=== PATIENT | female | born 1980 | race African-American/Black ===

== ENCOUNTER 2021-05-16 17:18 | Emergency (ER) | payer OTHER ==
[2021-05-16 18:21] VITALS: BP 113/74; PULSE 108; RESP 20; TEMP 100.9
[2021-05-16] MEDS ORDERED: guaiFENesin-DM 600/30MG 1 EACH TAB.ER.12H PO STA (20:04)
[2021-05-16] MEDS ORDERED: ACETAMINOPHEN TAB 500 MG TAB PO STA (20:04)
--- NOTE | 2021-05-16 21:24 | XR ---
EXAMINATION TYPE: XR chest 1V DATE OF EXAM: 05/16/2021 CLINICAL HISTORY: Cough. TECHNIQUE: Portable frontal view of the chest. COMPARISON: None FINDINGS: The cardiomediastinal silhouette is within normal limits for size. Pulmonary vasculature i s normal. There is no focal air space opacity. No pleural effusion. No pneumothorax seen. No acute d isplaced osseous fracture. IMPRESSION: No acute cardiopulmonary process.
--- NOTE | 2021-05-16 21:27 | ED ---
URI HPI - General Chief Complaint: Upper Respiratory Infection Stated Complaint: cough/not eating Time Seen by Provider: 05/16/21 19:35 Source: patient Mode of arrival: ambulatory Limitations: no limitations - History of Present Illness Initial Comments: 40 -year-old female patient presents to the emergency department today for evaluation of cough and congestion. States that she has been feeling unwell for the last 2-3 days. States her appetite is decreased. She denies any sore throat. States she does have body aches and chills. Denies taking any medication for her symptoms. Denies any significant past medical history. States she has been exposed to COVID-19, a coworker tested positive this week. She denies any chance of . - Related Data Previous Rx's Medication Instructions Recorded guaiFENesin-DM 600/30MG [Mucinex 2 each PO Q12HR PRN #20 tab 05/16/21 Dm] predniSONE 50 mg PO DAILY #5 tablet 05/16/21 Allergies Allergy/AdvReac Type Severity Reaction Status Date / Time No Known Allergies Allergy Verified 05/16/21 18:19 Review of Systems ROS Statement: Those systems with pertinent positive or pertinent negative responses have been documented in the HPI. ROS Other: All systems not noted in ROS Statement are negative. Past Medical History Past Medical History: Asthma History of Any Multi-Drug Resistant Organisms: None Reported Past Surgical History: Section Past Psychological History: No Psychological Hx Reported Smoking Status: Never smoker Past Alcohol Use History: Occasional Past Drug Use History: None Reported General Exam Limitations: no limitations General appearance: alert, in no apparent distress, other (Is a well-developed, well-nourished adult female patient in no acute distress. Vital signs upon presentation temperature 100.9F, pulse 108, respirations 20 blood pressure 113/74, pulse ox 100% on room air.) Eye exam: Present: normal appearance, PERRL, EOMI. Absent: scleral icterus, conjunctival injection, periorbital swelling ENT exam: Present: normal exam, normal oropharynx, mucous membranes moist, TM's normal bilaterally Respiratory exam: Present: normal lung sounds bilaterally. Absent: respiratory distress, wheezes, rales, rhonchi, stridor Cardiovascular Exam: Present: regular rate, normal rhythm, normal heart sounds. Absent: systolic murmur, diastolic murmur, rubs, gallop, clicks GI/Abdominal exam: Present: soft, normal bowel sounds. Absent: distended, tenderness, guarding, rebound, rigid Neurological exam: Present: alert, oriented X3, CN II-XII intact Psychiatric exam: Present: normal affect, normal mood Skin exam: Present: warm, dry, intact, normal color. Absent: rash Course Vital Signs 05/16/21 18:19 Temperature 100.9 F H Pulse Rate 108 H Respiratory 20 Rate Blood Pressure 113/74 O2 Sat by Pulse 100 Oximetry Medical Decision Making - Medical Decision Making 40-year-old female patient presents to the emergency department today for evaluation of fever, cough, congestion. Physical examination is unremarkable. Lungs are clear to auscultation with good air movement. Vital signs did reveal elevated temperature. Normal oxygen saturation. Chest x-ray is negative. She tested negative for COVID-19. Discussed results with her. She was discharged home with prescription for Mucinex and prednisone. She is instructed to follow- up through primary care physician for recheck in 1-2 days. Return parameters were discussed in detail. She verbalizes understanding and agrees with this plan. My attending is Dr. Santos. - Lab Data Lab Results 05/16/21 05/16/21 Range/Units 18:21 20:28 Coronavirus (PCR) Not Detected Not Detected (Not Detectd) - Radiology Data Radiology results: report reviewed, image reviewed Review x-ray of the chest is obtained. Report was reviewed in its entirety. Impression by Dr. Skinner shows no acute cardiopulmonary process. Disposition Clinical Impression: Viral upper respiratory illness Disposition: HOME SELF-CARE Condition: Good Instructions (If sedation given, give patient instructions): Upper Respiratory Infection (ED) Additional Instructions: Medications as directed. Follow-up with your primary care physician for recheck in 1-2 days. Return for any new, worsening, or concerning symptoms. Prescriptions: guaiFENesin-DM 600/30MG [Mucinex Dm] 2 each PO Q12HR PRN #20 tab PRN Reason: Cough predniSONE 50 mg PO DAILY #5 tablet Is patient prescribed a controlled substance at d/c from ED?: No Referrals: None,Stated [Primary Care Provider] - 1-2 days Time of Disposition: 21:26
== END 2021-05-16 21:56 | disposition home or self-care (01) ==
LOC: EC 17:18
DX: J06.9 Acute upper respiratory infection, unspecified (principal); J45.909 Unspecified asthma, uncomplicated; Z20.822 Contact with and (suspected) exposure to COVID-19
CPT/HCPCS: 71045; 87635; 99283

== ENCOUNTER 2021-06-21 05:53 | Emergency (ER) | payer OTHER ==
[2021-06-21 05:59] VITALS: BP 136/86; PULSE 91; TEMP 98.8
[2021-06-21 06:08] VITALS: RESP 20
--- NOTE | 2021-06-21 06:51 | ED ---
URI HPI - General Chief Complaint: Upper Respiratory Infection Stated Complaint: Cough Time Seen by Provider: 06/21/21 06:07 Source: patient, RN notes reviewed Mode of arrival: ambulatory Limitations: no limitations - History of Present Illness Initial Comments: This a 32-year-old female presents emergency Department with chief complaint of possible covid 19. Patient states that her significant other tested positive. Patient that she's had a mild runny nose no significant fever mild cough and congestion. Patient denies any chest pain no GI symptoms no other complaints. - Related Data Previous Rx's Medication Instructions Recorded guaiFENesin-DM 600/30MG [Mucinex 2 each PO Q12HR PRN #20 tab 05/16/21 Dm] predniSONE 50 mg PO DAILY #5 tablet 05/16/21 Allergies Allergy/AdvReac Type Severity Reaction Status Date / Time No Known Allergies Allergy Verified 06/21/21 05:59 Review of Systems ROS Statement: Those systems with pertinent positive or pertinent negative responses have been documented in the HPI. ROS Other: All systems not noted in ROS Statement are negative. Past Medical History Past Medical History: Asthma History of Any Multi-Drug Resistant Organisms: None Reported Past Surgical History: Section Past Psychological History: No Psychological Hx Reported Smoking Status: Never smoker Past Alcohol Use History: Occasional Past Drug Use History: None Reported General Exam Limitations: no limitations General appearance: alert, in no apparent distress Head exam: Present: atraumatic, normocephalic, normal inspection Eye exam: Present: normal appearance, PERRL, EOMI. Absent: scleral icterus, conjunctival injection, periorbital swelling ENT exam: Present: normal exam, mucous membranes moist Neck exam: Present: normal inspection, full ROM. Absent: tenderness, meningismus, lymphadenopathy Respiratory exam: Present: normal lung sounds bilaterally. Absent: respiratory distress, wheezes, rales, rhonchi, stridor Cardiovascular Exam: Present: regular rate, normal rhythm, normal heart sounds. Absent: systolic murmur, diastolic murmur, rubs, gallop, clicks Course Vital Signs 06/21/21 06/21/21 05:57 06:06 Temperature 98.8 F Pulse Rate 91 Respiratory 18 20 Rate Blood Pressure 136/86 O2 Sat by Pulse 100 Oximetry Medical Decision Making - Medical Decision Making Patient's covid 19 negative. Patient has a viral URI will be discharged stable condition return parameters were discussed. - Lab Data Lab Results 06/21/21 Range/Units 06:10 Coronavirus (PCR) Not Detected (Not Detectd) Disposition Clinical Impression: Encounter for laboratory testing for COVID-19 virus, Upper respiratory tract infection Disposition: HOME SELF-CARE Condition: Stable Instructions (If sedation given, give patient instructions): Upper Respiratory Infection (ED) Additional Instructions: Please return to the Emergency Department if symptoms worsen or any other concerns. Is patient prescribed a controlled substance at d/c from ED?: No Referrals: None,Stated [Primary Care Provider] - 1-2 days Time of Disposition: 06:51
== END 2021-06-21 07:09 | disposition home or self-care (01) ==
LOC: EC 05:53
DX: Z20.822 Contact with and (suspected) exposure to COVID-19 (principal); J06.9 Acute upper respiratory infection, unspecified; J45.909 Unspecified asthma, uncomplicated; Z72.89 Other problems related to lifestyle
CPT/HCPCS: 87635; 99283

== ENCOUNTER → 2024-03-17 | Outpatient (CLI) | payer OTHER ==
[2024-03-17 09:05] VITALS: BP 113/69; PULSE 74; RESP 16; TEMP 98.3
--- NOTE | 2024-03-17 10:13 | P.HPOB ---
History of Present Illness H&P Date: 03/17/24 Chief Complaint: The patient is here for her routine gynecologic exam. This is a 43-year-old -0-1-4 with an LMP of 02/29/2024. Patient is here to establish with this office. It has been about 2 years since her last pelvic exam. She recently has moved to this area from [place]. She has been using withdrawal for control. She states she would not mind getting again. She is declining anything for control. She is complaining of some irritation beneath both breasts in the crease. Menstrual periods are regular every month. Review of Systems She states her weight can fluctuate by 5 pounds. She denies respiratory, cardiac, or GI problems. Past Medical History Past Medical History: Asthma Additional Past Medical History / Comment(s): Environmental allergies. 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 History of Any Multi-Drug Resistant Organisms: None Reported Past Surgical History: Section, Hernia Repair Additional Past Surgical History / Comment(s): sections x 4. Umbilical hernia repair. Ankle surgery. Neck abscess drained. Past Psychological History: No Psychological Hx Reported Smoking Status: Never smoker Past Alcohol Use History: Occasional (About 2 drinks every 2 months.) Past Drug Use History: None Reported Additional History: She is single and has been with her boyfriend since 2019 and they live together. 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 - Past Family History Father Family Medical History: Hypertension, Myocardial Infarction (VT) Mother Family Medical History: Thyroid Disorder Additional Family Medical History / Comment(s): Lupus. No family history of cancer of the breast, uterus, ovaries, or colon. Medications and Allergies Home Medications and Allergies Comment(s): Patient states she has used an albuterol inhaler as needed in the past, but does not have a current prescription for this. She states she infrequently needs it for asthma flareups. Home Medications Medication Instructions Recorded Confirmed Type No Known Home Medications 03/17/24 03/17/24 History Allergies Allergy/AdvReac Type Severity Reaction Status Date / Time No Known Allergies Allergy Verified 03/17/24 09:00 Exam Vital Signs Temp Pulse Resp BP Pulse Ox 03/17/24 09:01 98.3 F 74 16 113/69 97 Intake and Output 03/16/24 03/17/24 03/17/24 22:59 06:59 14:59 Other: Weight 90.265 kg Height 5 feet 4 inches, weight 199 pounds, BMI 34.2. This is a well-developed well-nourished black female who is alert and oriented times 3 in no acute distress. HEENT: Within normal limits. NECK: Supple without mass or thyromegaly. CHEST AND LUNGS: Clear to auscultation. HEART: Regular rate and rhythm. BREASTS: Are without mass or discharge. There are bilateral nipple piercings which are not inflamed. No significant inflammation is seen in the creases below the breasts. AXILLARY EXAM: Negative for adenopathy. BACK: Negative for CVA tenderness. ABDOMEN: Soft, nontender, without palpable masses. PELVIC EXAM: Normal external genitalia. Cervix and vagina appear normal. The cervix is anterior. There is no unusual discharge. There is no evidence of prolapse. The uterus is retroverted, nongravid size and nontender. There are no palpable adnexal masses or tenderness. RECTAL EXAM: negative for mass or tenderness and is negative for occult blood. EXTREMITIES: Nontender. IMPRESSION: 1. 43-year-old female using withdrawal for control with normal gynecologic exam. 2. The patient is declining any other method of control. She states she would not mind getting but is not actively trying. 3. Probable mild intertrigo beneath the breasts by the patient's complaints of irritation in the crease. PLAN: 1. Pap smear cotest was performed. 2. Self breast awareness was discussed with the patient. We have also discussed symptoms associated with inflammatory breast cancer. 3. Baseline screening mammogram was recommended and the order slip was given to the patient for this. 4. She can try an [id number] antifungal cream such as ones used for athlete's foot crease below the breast. She will also try to keep the area clean and dry. 5. We have discussed at her age. I have recommended that she take a daily multivitamin if she is not doing anything else to prevent . She should choose a vitamin with folic acid. We have also discussed the increasing risk for chromosomal defects such as Down syndrome. She understands at age 43 the risk is around 1 and 40 and will continue to increase. She was instructed to call if she changes her mind about using other methods of control. We have discussed permanent methods including tubal sterilization and vasectomy. 6. Patient states she has not yet established with a primary care physician in this area. She does not have a prescription for albuterol inhaler, which she has used for infrequent asthma episodes. A prescription for an albuterol inhaler, 1 to 2 puffs 4 times daily as needed, will be sent to [facility] pharmacy on . Understands that in the future she should do this through her PCP. She states she will try to establish with 1 in the near future. 7. She was advised to return in one year for her annual well woman exam. 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
== END ==
LOC: WWCWWP 08:42
PROVIDERS: ATTEND Obstetrics & Gynecology
DX: Z01.419 Encounter for gynecological examination (general) (routine) without abnormal findings (principal)